=== PATIENT | male | born 1995 | race Caucasian/White ===

== ENCOUNTER 2019-02-08 21:46 | Emergency (ER) | payer BC ==
[~2019-02-08] VITALS: Ht 185.4 cm; Wt 81.8 kg
[2019-02-08 21:56] VITALS: Ht 185.4 cm; Wt 81.8 kg
[2019-02-08 22:18] LABS: HEMATOCRIT 43.1 % (42.0-54.0); HEMOGLOBIN 15.1 g/dL (13.5-17.5); LYMPHOCYTES 8.9 % (15-50); MCH 31.5 pg (26.0-34.0); MEAN PLATELET VOLUME 8.8 fL (7.4-10.4); NEUTROPHILS 89.5 % (40-80); PLATELET COUNT 202 10x3/uL (130-400); RBC 4.79 10x6/uL (4.20-6.10); RDW 12.9 % (11.5-14.5); WBC 14.7 10x3/uL (4.8-10.8)
[2019-02-08 22:19] LABS: APPEARANCE CLEAR (CLEAR); BILIRUBIN NEGATIVE (NEGATIVE); COLOR YELLOW (YELLOW); GLUCOSE NEGATIVE (NEGATIVE); KETONE NEGATIVE (NEGATIVE); NITRITE NEGATIVE (NEGATIVE); PROTEIN TRACE mg/dL (NEGATIVE); UROBILINOGEN NORMAL (NORMAL)
[2019-02-08 22:37] LABS: ALBUMIN 3.4 g/dL (3.4-5.0); ALKALINE PHOSPHATASE 95 U/L (46-116); ALT (SGPT) 34 U/L (10-68); BILIRUBIN - TOTAL 0.74 mg/dL (0.2-1.3); CALC OSMOLALITY 273 mosm/kg (275-300); CALCIUM 8.3 mg/dL (8.5-10.1); CARBON DIOXIDE 26.2 mmol/L (21.0-32.0); CHLORIDE - SERUM 106 mmol/L (98-107); GLUCOSE 97 mg/dL (74-106); POTASSIUM - SERUM 4.1 mmol/L (3.5-5.1); PROTEIN - SERUM 7.4 g/dL (6.4-8.2); SODIUM 137 mmol/L (136-145); UREA NITROGEN 12 mg/dL (7-18); eGFR NON AFRICAN AMERICAN > 90 mL/min (90-120)
[2019-02-08 22:41] LABS: AMYLASE - SERUM 48 U/L (25-115); LIPASE 147 U/L (73-393); TROPONIN-I < 0.017 ng/mL (0.000-0.060)
[2019-02-09] MEDS ORDERED: TORADOL10 MG PO (00:44)
[2019-02-09] MEDS ORDERED: ZOFRAN8 MG PO (00:44)
[2019-02-09 01:08] VITALS: BP 101/43
== END 2019-02-09 01:09 | disposition home or self-care (01) ==
LOC: D.ER 21:46
PROVIDERS: Family Medicine
DX: R11.0 Nausea (principal); R50.9 Fever, unspecified; R10.32 Left lower quadrant pain